=== PATIENT | female | born 1980 | race Caucasian/White ===

== ENCOUNTER 2021-06-05 11:37 | Outpatient (CLI) | payer BC, SELFPAY ==
[2021-06-05 12:45] LABS: SARS-CoV-2 Ag Negative (Negative)
== END 2021-06-05 11:38 | disposition home or self-care (01) ==
LOC: CHSLAB 11:47
PROVIDERS: PCP Physician Assistant; Visit Provider Physician Assistant
DX: B34.9 Viral infection, unspecified (principal); Z20.822 Contact with and (suspected) exposure to COVID-19
CPT/HCPCS: 87426; C9803